=== PATIENT | male | born 1965 | race Two or more races ===

== ENCOUNTER → 2019-09-21 | Outpatient (CLI) | payer SELFPAY ==
[~2019-09-21] VITALS: Ht 167.6 cm; Wt 77.1 kg
== END | disposition home or self-care (01) ==
LOC: Rad HDHVI 07:59
PROVIDERS: ATTEND Internal Medicine Cardiovascular Disease
DX: R07.9 Chest pain, unspecified (principal); R42 Dizziness and giddiness
CPT/HCPCS: 93017

== ENCOUNTER 2025-02-16 12:01 | Inpatient (IN) | payer SELFPAY ==
[~2025-02-16] VITALS: Ht 172.7 cm; Wt 84.9 kg
--- NOTE | 2025-02-16 12:25 | ED.PDOC ---
History of Present Illness HPI Comments 59 year old male presents to the ED via EMS with a chief complaint of dizziness onset today (02/16/25). Per EMS, patient was at work, construction site, began experiencing dizziness, generalized weakness, fatigue. Upon EMS arrival, patient was cold, weak, pale, lethargic, BP was 130/85, O2 sat 97% RA. Patient states he is currently experiencing shortness of breath and generalized weakness. Denies headache, chest pain, nausea, vomiting, diarrhea, dysuria, hematuria, fever, chills. No other symptoms or modifying factors present at this time. Time Seen by MD: 12:20 Reviewed Notes: Medications, Allergies Allergies: Coded Allergies: No Known Drug Allergy (Verified Allergy, Unknown, 09/21/19) Information Source: Patient, Emergency Med Personnel Mode of Arrival: EMS Severity: Moderate Timing: Hours Duration: Since onset Prehospital treatment: None Past Medical History PAST MEDICAL HISTORY: Denies Surgical History: Appendectomy Surgical History (Other): cardiac ablasion Family History Family History: Reviewed,noncontributory to illness, No family hx of Cancer, No family hx of DM, No family hx of Heart don, No family hx of HTN, No family hx ofKidney don, No family hx of Liver don, No family hx of Lung don, No family hx of Stroke Social History Smoker: Non-Smoker Alcohol: Denies ETOH Use Drugs: Denies Drug Use Lives In: Home Constitutional: reports: fatigue, weakness; denies: chills, diaphoresis, fever, malaise, sweats, others EENTM: denies: blurred vision, double vision, ear bleeding, ear discharge, ear drainage, ear pain, ear ringing, eye pain, eye redness, hearing loss, mouth pain, mouth swelling, nasal discharge, nose bleeding, nose congestion, nose pain, photophobia, tearing, throat pain, throat swelling, voice changes, others Respiratory: reports: shortness of breath; denies: cough, hemoptysis, orthopnea, SOB at rest, SOB with excertion, stridor, wheezing, others Cardiovascular: denies: chest pain, dizzy spells, diaphoresis, Dyspnea on exertion, edema, irregular heart beat, left arm pain, lightheadedness, palpit ations, PND, syncope, others Gastrointestinal: denies: abdomen distended, abdominal pain, blood streaked b owels, constipated, diarrhea, dysphagia, difficulty swallowing, hematemesis, melena, nausea, poor appetite, poor fluid intake, rectal bleeding, rectal pain, vomiting, others Genitourinary: denies: burning, dysuria, flank pain, frequency, hematuria, incontinence, penile discharge, penile sore, pain, testicle pain, testicle swelling, urgency, others Neurological: reports: dizziness; denies: fainting, headache, left sided numbness, left sided weakness, numbness, paresthesia, pre-existing deficit, right sided numbness, right sided weakness, seizure, speech problems, tingling, tremors, weakness, others Musculoskeletal: denies: back pain, gout, joint pain, joint swelling, muscle pain, muscle stiffness, neck pain, others Integumetry: denies: bruises, change in color, change in hair/nails, dryness, laceration, lesions, lumps, rash, wounds, others Allergic/Immunocompromised: denies: Difficulty Healing, Frequent Infections, Hives, Itching, others Hematologic/Lymphatic: denies: anemia, blood clots, easy bleeding, easy bruising, swollen glands, others Endocrine: denies: excessive hunger, excessive sweating, excessive thirst, excessive urination, flushing, intolerance to cold, intolerance to heat, unexplained weight gain, unexplained weight loss, others Psychiatric: denies: anxiety, bipolar disorder, depression, hopeless, panic di sorder, schizophrenia, sleepless, suicidal, others All Other Systems: Reviewed and Negative Physical Exam General Appearance: Moderate Distress HEENT: Normal ENT Inspection, Pharynx Normal, TMs Normal Neck: Full Range of Motion, Non-Tender, Normal, Normal Inspection Respiratory: Chest Non-Tender, Lungs Clear, No Accessory Muscle Use, No Respiratory Distress, Normal Breath Sounds Cardiovascular: No Edema, No JVD, No Murmur, No Gallop, Normal Peripheral Pulses, Regular Rate/Rhythm Breast Exam: Deferred Gastrointestinal: No Organomegaly, Non Tender, No Pulsatile Mass, Normal Bowel Sounds, Soft Genitalia: Deferred Pelvic: Deferred Rectal: Deferred Extremities: No calf tenderness, Normal capillary refill, Normal inspection, Normal range of motion, Non-tender, No pedal edema Musculoskeletal : Apperance: Normal Neurologic: Alert, health technician hearing II-XII nml as Tested, No Motor Deficits, Normal Affect, Normal Mood, No Sensory Deficits Cerebellar Function: NOT DONE Reflexes: NOT DONE Skin: Dry, Normal Color, Warm Peripheral Pulses: 3+ Radial (R), 3+ Radial (L) Lymphatic: No Adenopathy Was a procedure done? Was a procedure done?: No EKG EKG : Pulse Rate (adult): 57 Cardiac Rhythm: NSR Differential Dx Considerations may include: Autonomic disorder Anemia X-Ray, Labs, Meds, VS Vital Signs Date Time Temp Pulse Resp B/P (MAP) Pulse Ox O2 Delivery O2 Flow Rate FiO2 02/16/25 14:15 57 02/16/25 13:53 97.8 61 18 123/85 (98) 97 97.8 02/16/25 12:10 97.8 58 18 130/85 (100) 96 97.8 02/16/25 12:05 57 Lab Test 02/16/25 13:11 Range/Units White Blood Count 13.0 H 4.4-10.8 10^3/uL Red Blood Count 5.26 4.5-5.90 10^6/uL Hemoglobin 16.4 13.5-17.5 g/dL Hematocrit 47.3 41.0-53.0 % Mean Corpuscular Volume 90.1 80.0-100.0 fL Mean Corpuscular Hemoglobin 31.1 28.0-32.0 pg Mean Corpuscular Hemoglobin Concent 34.6 32.0-36.0 g/dL Red Cell Distribution Width 12.6 11.8-14.3 % Platelet Count 242 140-450 10^3/uL Mean Platelet Volume 7.9 6.9-10.8 fL Neutrophils (%) (Auto) 89.5 H 37.0-80.0 % Lymphocytes (%) (Auto) 5.4 L 10.0-50.0 % Monocytes (%) (Auto) 4.5 0.0-12.0 % Eosinophils (%) (Auto) 0.2 0.0-7.0 % Basophils (%) (Auto) 0.4 0.0-2.0 % Neutrophils # (Auto) 11.6 H 1.6-8.6 10 ^3/uL Lymphocytes # (Auto) 0.7 0.4-5.4 10 ^3/uL Monocytes # (Auto) 0.6 0-1.3 10 ^3/uL Eosinophils # (Auto) 0 0-0.8 10 ^3/uL Basophils # (Auto) 0.1 0-0.2 10 ^3/uL Nucleated Red Blood Cells 0.0 % Sodium Level 145 136-145 mmol/L Potassium Level 4.9 3.5-5.1 mmol/L Chloride Level 114 H 98-107 mmol/L Carbon Dioxide Level 24 20-31 mmol/L Anion Gap 7 5-15 Blood Urea Nitrogen 13 9-23 mg/dL Creatinine 1.05 0.700-1.30 mg/dL Glomerular Filtration Rate Calc 81 >90 mL/min BUN/Creatinine Ratio 12.4 10.0-20.0 Serum Glucose 130 H 74-106 mg/dL Calcium Level 10.4 8.7-10.4 mg/dL Troponin I High Sensitivity < 3 L </=54 ng/L Current Medications Medications (Trade) Dose Ordered Sig/Roger Route Start Time Stop Time Status Last Admin Ceftriaxone Sodium 50 ml @ 100 mls/hr ONCE ONCE IV 02/16/25 14:15 02/16/25 14:49 DC 02/16/25 16:00 Patient alert. Complaining of dizziness. Heart rate in the low side. Vitals stable. Continues to have dizziness. Possibly autonomic disorder. Was given meclizine. Cardiology workup. Cardiology consultation. EKG reviewed does not show any acute changes. Reviewed his history. CT of the head reviewed does not show any acute changes. Cardiac marker within normal limits. Blood sugar slightly elevated. WBC slightly elevated. Establish intravenous access. Was given fluids. Was given Rocephin. Explained to the patient. Time of 1ST Reevaluation: 12:50 Reevaluation 1ST: Unchanged Patient Education/Counseling: Diagnosis, Treatment, Prognosis Family Education/Counseling: No Family Present Departure 1 Departure Time of Disposition: 12:42 Impression: Primary Impression: Symptomatic bradycardia Additional Impressions: Autonomic disorder Uncontrolled diabetes mellitus Qualified Codes: E13.65 - Other specified diabetes mellitus with hyperglycemia Leukocytosis, unspecified Disposition: ADMITTED INPATIENT Admit to: Med Surg Condition: Guarded Critical Care Note Critical Care Time?: Yes (90 min-critical care time only) Critical care comment: Symptomatic bradycardia continue to monitor Stability Stability form required: No Heart Score Heart Score: Heart Score Response (Comments) Value History Slightly Suspicious 0 EKG Normal 0 Age 45-64 1 Risk Factors >3 or Hx ASHD 2 Troponin Normal limit 0 Total 3 I personally scribed for CANDICE SOUTH MD ([email or web address]) on 02/16/25 at 12:25. Electronically submitted by Brie Funk ([email or web address]). I personally scribed for CANDICE SOUTH MD ([email or web address]) on 02/16/25 at 14:15. Electronically submitted by Brie Funk ([email or web address]). CANDICE SOUTH MD Feb 16, 2025 12:25
--- NOTE | 2025-02-16 13:12 | ECG ---
[facility] Test Date: 2025-02-16 Test Time: 12:05:39 Pat Name: IVETTE ROACH Department: ED Room: 0291T Gender: M Student Teaching Coordinator: saji : 1965 Requested By: CANDICE SOUTH Order Number: [id number] Reading MD: Ish Connolly Measurements Intervals [place] Rate: 57 P: 62 MO: 171 QRS: 71 QRSD: 98 T: 15 QT: 443 QTc: 432 Interpretive Statements Sinus rhythm RSR' in V1 or V2, probably normal variant Electronically Signed On 02-17-2025 14:58:45 PDT by Ish Connolly Please click the below link to view image of tracing.
[2025-02-16 13:21] LABS: Basophils # (auto) 0.1 10 ^3/uL (0-0.2); Basophils % (auto) 0.4 % (0.0-2.0); Eosinophils # (auto) 0 10 ^3/uL (0-0.8); Eosinophils % (auto) 0.2 % (0.0-7.0); Hematocrit 47.3 % (41.0-53.0); Hemoglobin 16.4 g/dL (13.5-17.5); Lymphocytes # (auto) 0.7 10 ^3/uL (0.4-5.4); Lymphocytes % (auto) 5.4 % (10.0-50.0); Mean Corpuscular Hemoglobin 31.1 pg (28.0-32.0); Mean Corpuscular Hgb Conc. 34.6 g/dL (32.0-36.0); Mean Corpuscular Volume 90.1 fL (80.0-100.0); Monocytes # (auto) 0.6 10 ^3/uL (0-1.3); Monocytes % (auto) 4.5 % (0.0-12.0); Neutrophils # (auto) 11.6 10 ^3/uL (1.6-8.6); Neutrophils % (auto) 89.5 % (37.0-80.0); Platelet Count (auto) 242 10^3/uL (140-450); Red Blood Cells 5.26 10^6/uL (4.5-5.90); Red Cell Distribution Width 12.6 % (11.8-14.3)
[2025-02-16 13:35] LABS: Potassium 4.9 mmol/L (3.5-5.1)
[2025-02-16 13:36] LABS: Anion Gap 7 (5-15); Carbon Dioxide 24 mmol/L (20-31)
[2025-02-16 13:37] LABS: Calcium 10.4 mg/dL (8.7-10.4); Chloride 114 mmol/L (98-107); Sodium 145 mmol/L (136-145)
[2025-02-16 13:42] LABS: Glucose 130 mg/dL (74-106)
[2025-02-16 13:43] LABS: BUN/Creatinine Ratio 12.4 (10.0-20.0); Blood Urea Nitrogen 13 mg/dL (9-23)
[2025-02-16] MEDS ORDERED: HYDROcodone-ACET 5/325MG TAB PO PRN (14:15)
[2025-02-16] MEDS ORDERED: ACETAMINOPHEN 325 MG TAB PO PRN (14:15)
[2025-02-16] MEDS ORDERED: ONDANSETRON HCL 4 MG/2 ML VIAL IV PRN (14:15)
[2025-02-16] MEDS ORDERED: DOCUSATE SOD 100 MG CAP PO PRN (14:15)
[2025-02-16] MEDS ORDERED: NITROGLYCERIN 0.4 MG SL TAB SL PRN (15:00)
[2025-02-16] MEDS ORDERED: MORPHINE SULFATE INJ 2 MG/ml SYRG IV PRN (15:00)
[2025-02-16] MEDS ORDERED: MECLIZINE HCL 25 MG TAB PO PRN (15:00)
--- NOTE | 2025-02-16 15:00 | DVHHP2 ---
History of Present Illness Reason for Visit: Dizziness and giddiness History of Present Illness The patient is a 59-year-old male with past medical history of appendicitis who presented to [facility] ED with complaint of dizziness. 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 Patient was seen and evaluated in the ED, laboratory data shows WBC 13.0, platelets 242, sodium 145, potassium 4.9, BUN 13, creatinine 1.05, glucose 130, calcium 10.4, troponin < 3, blood pressure 123/85, heart rate 58, temperature 97.8 F, O2 saturation 97% on oxygen. Head CT results pending, please see medication orders section in the computer. On my assessment, patient denied chest pain, no headache, no dizziness, currently on oxygen, no diaphoresis, no nausea, no vomiting, no fever, no chills. Patient was admitted for further evaluation and medical management. Past Medical History Appendicitis Past Surgical History Appendectomy, Cardiac ablation Family History Reviewed, noncontributory to the management of this case. Past Social History The patient lives at home, denies smoking, alcohol or illicit drugs abuse. Review of Systems Constitutional: Yes: Weakness, Other (Fatigue); No: Fever, Chills, Sweats, Malaise Eyes: No: Pain, Vision change, Conjunctivae inflammation, Eyelid inflammation, Other, Redness ENT: No: Ear pain, Ear discharge, Nose pain, Nose discharge, Nose congestion, Mouth pain, Mouth swelling, Throat pain, Throat swelling, Other Respiratory: Shortness of breath; No: Cough, Dry, SOB with excertion, Wheezing, Hemoptysis, Pleuritic Pain, Sputum, Wheezing, Other Cardiovascular: No: Chest Pain, Palpitations, Orthopnea, Paroxysmal Noc. Dyspnea, Edema, Lt Headedness, Other Gastrointestinal: No: Nausea, Vomiting, Abdominal Pain, Diarrhea, Constipation, Melena, Hematochezia, Other Genitourinary: No Dysuria, No Frequency, No Incontinence, No Hematuria, No Retention, No Other Musculoskeletal: No: other, neck pain, shoulder pain, arm pain, back pain, hand pain, leg pain, foot pain Skin: No: Rash, Lesions, Jaundice, Bruising, Other Neurological: Other (Dizziness); No: Weakness, Numbness, Incoordination, Change in speech, Confusion, Seizures Allergies: Coded Allergies: No Known Drug Allergy (Verified Allergy, Unknown, 09/21/19) Medications Current Medications Medications Dose Ordered Sig/Roger Route Start Time Stop Time Status Last Admin Dose Admin Sodium Chloride 10 ml Q8HR IV 02/16/25 22:00 Acetaminophen/ Hydrocodone Bitart 1 tab Q4HP PRN PO 02/16/25 14:15 Ondansetron HCl 4 mg Q4HP PRN IV 02/16/25 14:15 Docusate Sodium 100 mg BIDPRN PRN PO 02/16/25 14:15 Acetaminophen 650 mg Q6HP PRN PO 02/16/25 14:15 Ceftriaxone Sodium 50 ml @ 100 mls/hr DAILY@09 IV 02/17/25 09:00 Exam Vital Signs Vital Signs Date Time Temp Pulse Resp B/P (MAP) Pulse Ox O2 Delivery O2 Flow Rate FiO2 02/16/25 14:15 57 02/16/25 13:53 97.8 18 123/85 (98) 97 97.8 General Appearance: Alert, Oriented X3, Cooperative, No acute distress HEENT: Atraumatic, PERRLA, EOMI, Mucous membr. moist/pink Respiratory: Clear to auscultation, Normal air movement Cardiovascular: Regular rate, Normal S1, Normal S2, No murmurs Abdominal: Normal bowel sounds, Soft, No tenderness, No hepatospenomegaly, No masses Extremities: No clubbing, No cyanosis, No edema, Normal pulses, No tenderness/swelling Skin: No rashes, No breakdown, No significant lesion Neuro: Normal speech, Normal tone, Sensation intact, Cranial nerves 3-12 NL, Reflexes 2+, Other (Generalized weakness) Psych/Mental Status: Mental status NL, Mood NL Labs/Xrays Labs Test 02/16/25 13:11 Range/Units White Blood Count 13.0 H 4.4-10.8 10^3/uL Red Blood Count 5.26 4.5-5.90 10^6/uL Hemoglobin 16.4 13.5-17.5 g/dL Hematocrit 47.3 41.0-53.0 % Mean Corpuscular Volume 90.1 80.0-100.0 fL Mean Corpuscular Hemoglobin 31.1 28.0-32.0 pg Mean Corpuscular Hemoglobin Concent 34.6 32.0-36.0 g/dL Red Cell Distribution Width 12.6 11.8-14.3 % Platelet Count 242 140-450 10^3/uL Mean Platelet Volume 7.9 6.9-10.8 fL Neutrophils (%) (Auto) 89.5 H 37.0-80.0 % Lymphocytes (%) (Auto) 5.4 L 10.0-50.0 % Monocytes (%) (Auto) 4.5 0.0-12.0 % Eosinophils (%) (Auto) 0.2 0.0-7.0 % Basophils (%) (Auto) 0.4 0.0-2.0 % Neutrophils # (Auto) 11.6 H 1.6-8.6 10 ^3/uL Lymphocytes # (Auto) 0.7 0.4-5.4 10 ^3/uL Monocytes # (Auto) 0.6 0-1.3 10 ^3/uL Eosinophils # (Auto) 0 0-0.8 10 ^3/uL Basophils # (Auto) 0.1 0-0.2 10 ^3/uL Nucleated Red Blood Cells 0.0 % Sodium Level 145 136-145 mmol/L Potassium Level 4.9 3.5-5.1 mmol/L Chloride Level 114 H 98-107 mmol/L Carbon Dioxide Level 24 20-31 mmol/L Anion Gap 7 5-15 Blood Urea Nitrogen 13 9-23 mg/dL Creatinine 1.05 0.700-1.30 mg/dL Glomerular Filtration Rate Calc 81 >90 mL/min BUN/Creatinine Ratio 12.4 10.0-20.0 Serum Glucose 130 H 74-106 mg/dL Calcium Level 10.4 8.7-10.4 mg/dL Troponin I High Sensitivity < 3 L </=54 ng/L Assessment/Plan Assessment/Plan Dizziness and giddiness Bradycardia Generalized weakness Shortness of breaths Leukocytosis, unspecified Plan 1. Admit to telemetry unit 2. Breathing treatment 3. Pain control management 4. IV antibiotic management 5. Management of fluids and electrolytes 6. Consultation for Neurology 7. Diagnostic test head CT 8. DVT prophylaxis-on SCDs 9. Repeat labs CBC, CMP in a.m. 10. Home medication reviewed and reconciled 11. Continue with current medical management 12. Treatment plan discussed with patient and RN. Patient verbalized understanding. Plan discussed with: Patient, Other (RN) My Orders Orders - KATY EDWARDS DNP Procedure Category Date Status Time Allergies MAKENZIE 02/16/25 In Process 14:07 Code Status CODE 02/16/25 Transmitted 14:07 Sodium Chloride Lock PHA 02/16/25 In Process (Saline Lock Ns) 22:00 Oxygen Per Hour RT 02/16/25 Transmitted 14:07 Hydrocodone-Acet PHA 02/16/25 In Process 5/325mg Tab (Ransom 14:15 Ondansetron Hcl PHA 02/16/25 In Process (Zofran) 14:15 Docusate Sodium PHA 02/16/25 In Process Capsule (Colace 14:15 Fall Risk Precautions MAKENZIE 02/16/[address] 14:07 Complete Blood Count LAB 02/17/25 Verified 04:00 Comprehensive LAB 02/17/25 Verified Metabolic Panel 04:00 Cardiac DIET 02/16/25 Transmitted Diet-2gna,Lofat,Lochol Dinner Condition: Serious MAKENZIE 02/16/25 In Process 14:07 Acetaminophen Tablet PHA 02/16/25 In Process (Tylenol Tablet) 14:15 Maintain Bed Rest MAKENZIE 02/16/25 In Process 14:07 Sequential MAKENZIE 02/16/25 In Process Compression Device Ceftriaxone 1gm/50ml PHA 02/17/25 In Process D5w (Rocephin) 09:00 Problem List: (1) Dizziness and giddiness (2) Bradycardia (3) Shortness of breath (4) Generalized weakness (5) Leukocytosis, unspecified Date of Service: Feb 16, 2025 Billing Provider: KATY EDWARDS DNP Common Visit Codes: 08969-VUEPPHY INP/OBS CARE (HIGH) KATY EDWARDS DNP Feb 16, 2025 15:00
--- NOTE | 2025-02-16 15:42 | DVH ---
CLINICAL HISTORY: Severe dizziness TECHNIQUE: Helical imaging carried out from skull base to vertex without intravenous contrast. This e xam was performed according to our departmental dose optimization program. Up-to-date CT equipment an d radiation dose reduction techniques are utilized as appropriate. CTDIVol: 58.8 mGy DLP: 1158.78 mGy-cm WID: COMPARISON: None FINDINGS: The ventricles and subarachnoid spaces are normal in size and configuration. There is no midline francisco ft or mass effect. The [place] white matter interfaces are maintained. The basal cisterns are patent. Th ere is no evidence of acute intracranial hemorrhage or extra-axial fluid collection. Bilateral mastoi d air cell effusions and bilateral middle ear fluid. Visualized paranasal sinuses are clear. IMPRESSION: 1. No acute intracranial abnormality. 2. Bilateral mastoid air cell effusions and bilateral middle ear fluid which could reflect otomastoid itis, correlate with clinical symptoms.
[2025-02-16] MEDS: cefTRIAXone 1GM/50ML D5W 50 ML IV ONE (16:00)
[2025-02-16 18:00] VITALS: PULSE 89; RESP 16; O2SAT 95
[2025-02-16 19:33] VITALS: PULSE 86; RESP 17; O2SAT 96
[2025-02-16 22:01] VITALS: PULSE 57; RESP 18; O2SAT 97
[2025-02-16 22:18] VITALS: BP 125/78; PULSE 73; RESP 19; O2SAT 95
[2025-02-17 01:00] VITALS: BP 122/82; PULSE 57; RESP 17; TEMP 97.8; O2SAT 97
[2025-02-17 05:00] VITALS: BP 124/74; PULSE 67; RESP 17; TEMP 98.1; O2SAT 97
[2025-02-17] MEDS: SODIUM CHLOR 0.9% PF (SALINE LOCK) 10ML VIAL/SYR IV SCH (05:55)
[2025-02-17 06:02] LABS: Basophils # (auto) 0.1 10 ^3/uL (0-0.2); Basophils % (auto) 0.6 % (0.0-2.0); Eosinophils # (auto) 0.2 10 ^3/uL (0-0.8); Eosinophils % (auto) 1.6 % (0.0-7.0); Hematocrit 44.3 % (41.0-53.0); Hemoglobin 15.5 g/dL (13.5-17.5); Lymphocytes # (auto) 1.6 10 ^3/uL (0.4-5.4); Lymphocytes % (auto) 16.3 % (10.0-50.0); Mean Corpuscular Hemoglobin 31.4 pg (28.0-32.0); Mean Corpuscular Volume 89.6 fL (80.0-100.0); Monocytes # (auto) 0.7 10 ^3/uL (0-1.3); Monocytes % (auto) 7.6 % (0.0-12.0); Neutrophils # (auto) 7.1 10 ^3/uL (1.6-8.6); Neutrophils % (auto) 73.9 % (37.0-80.0); Platelet Count (auto) 238 10^3/uL (140-450); Red Blood Cells 4.94 10^6/uL (4.5-5.90); Red Cell Distribution Width 13.2 % (11.8-14.3); White Blood Cell 9.6 10^3/uL (4.4-10.8)
[2025-02-17 06:23] LABS: Alanine Aminotransferase 17 U/L (7-40); Albumin 4.2 g/dL (3.2-4.8); Alkaline Phosphatase 75 U/L (46-116); Anion Gap 7 (5-15); Aspartate Aminotransferase 13 U/L (13-40); BUN/Creatinine Ratio 11.7 (10.0-20.0); Bilirubin, Total 0.8 mg/dL (0.2-1.0); Blood Urea Nitrogen 12 mg/dL (9-23); Calcium 9.4 mg/dL (8.7-10.4); Carbon Dioxide 25 mmol/L (20-31); Potassium 4.2 mmol/L (3.5-5.1); Sodium 142 mmol/L (136-145); Total Protein 6.3 g/dL (5.7-8.2)
[2025-02-17 06:25] LABS: Chloride 110 mmol/L (98-107); Glucose 112 mg/dL (74-106)
[2025-02-17 08:30] VITALS: PULSE 73
[2025-02-17 08:56] VITALS: BP 127/78; PULSE 65; RESP 19; TEMP 97.9; O2SAT 94
[2025-02-17] MEDS: cefTRIAXone 1GM/50ML D5W 50 ML IV SCH (09:22)
[2025-02-17 13:27] VITALS: BP 137/81; PULSE 69; RESP 18; TEMP 97.8; O2SAT 97
[2025-02-17] MEDS ORDERED: AUG875T PO (13:44)
--- NOTE | 2025-02-17 19:27 | DVHDS2 ---
Discharge Summary Date of Admission Feb 16, 2025 at 14:56 Date of Discharge: Feb 17, 2025 Labs/Diagnostic Data: Laboratory Results Test 02/17/25 05:06 02/16/25 13:11 White Blood Count 9.6 10^3/uL (4.4-10.8) Red Blood Count 4.94 10^6/uL (4.5-5.90) Hemoglobin 15.5 g/dL (13.5-17.5) Hematocrit 44.3 % (41.0-53.0) Mean Corpuscular Volume 89.6 fL (80.0-100.0) Mean Corpuscular Hemoglobin 31.4 pg (28.0-32.0) Mean Corpuscular Hemoglobin Concent 35.0 g/dL (32.0-36.0) Red Cell Distribution Width 13.2 % (11.8-14.3) Platelet Count 238 10^3/uL (140-450) Mean Platelet Volume 8.5 fL (6.9-10.8) Neutrophils (%) (Auto) 73.9 % (37.0-80.0) Lymphocytes (%) (Auto) 16.3 % (10.0-50.0) Monocytes (%) (Auto) 7.6 % (0.0-12.0) Eosinophils (%) (Auto) 1.6 % (0.0-7.0) Basophils (%) (Auto) 0.6 % (0.0-2.0) Neutrophils # (Auto) 7.1 10 ^3/uL (1.6-8.6) Lymphocytes # (Auto) 1.6 10 ^3/uL (0.4-5.4) Monocytes # (Auto) 0.7 10 ^3/uL (0-1.3) Eosinophils # (Auto) 0.2 10 ^3/uL (0-0.8) Basophils # (Auto) 0.1 10 ^3/uL (0-0.2) Nucleated Red Blood Cells 0.0 % Sodium Level 142 mmol/L (136-145) Potassium Level 4.2 mmol/L (3.5-5.1) Chloride Level 110 mmol/L (98-107) Carbon Dioxide Level 25 mmol/L (20-31) Anion Gap 7 (5-15) Blood Urea Nitrogen 12 mg/dL (9-23) Creatinine 1.03 mg/dL (0.700-1.30) Glomerular Filtration Rate Calc 83 mL/min (>90) BUN/Creatinine Ratio 11.7 (10.0-20.0) Serum Glucose 112 mg/dL (74-106) Calcium Level 9.4 mg/dL (8.7-10.4) Total Bilirubin 0.8 mg/dL (0.2-1.0) Aspartate Amino Transferase (AST) 13 U/L (13-40) Alanine Aminotransferase (ALT) 17 U/L (7-40) Alkaline Phosphatase 75 U/L (46-116) Total Protein 6.3 g/dL (5.7-8.2) Albumin 4.2 g/dL (3.2-4.8) Troponin I High Sensitivity < 3 ng/L (</=54) Other Laboratory Tests 02/17/25 05:06 Brief Hx & Hospital Course: The patient is a 59-year-old male with past medical history of appendicitis who presented to [facility] ED with complaint of dizziness. 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 Patient was seen and evaluated in the ED, laboratory data shows WBC 13.0, platelets 242, sodium 145, potassium 4.9, BUN 13, creatinine 1.05, glucose 130, calcium 10.4, troponin < 3, blood pressure 123/85, heart rate 58, temperature 97.8 F, O2 saturation 97% on oxygen. Head CT results pending, please see medication orders section in the computer. On my assessment, patient denied chest pain, no headache, no dizziness, currently on oxygen, no diaphoresis, no nausea, no vomiting, no fever, no chills. Patient was admitted for further evaluation and medical management. Dizziness improved, found mastoiditis on CT scan and discharged on oral abx Condition at Discharge: Good Final Diagnosis/Problems List Osteomastoiditis bradycardia Discharge Disposition: Home Discharge Instruct/Medications Diet: Regular Activity: No Restrictions, As Tolerated Follow Up/Referral: PCP in 7 days Medications: augmentin for 14 days Discharge Statement: "Patient was advised to return to the ER or call 911 if any headaches, dizziness, shortness of breath, chest pain, abdominal pain, bleeding, fevers, or worsening of medical condition. Patient was counseled about treatment plan, medications, possible side effects, patientverbalized understanding. All questions were answered to the best of my ability. This discharge took greater then 30 minutes in planning, reviewing documentation, counseling the patient, and discussing with other team members." ASSESSMENT ASSESSMENT Assessment Osteomastoiditis bradycardia Date of Service: Feb 17, 2025 Billing Provider: HUNG CAMACHO MD Common Visit Codes: 63404-IWY/OBS DISCH DAY >30min HUNG CAMACHO MD Feb 17, 2025 19:27
== END 2025-02-17 19:16 | disposition home or self-care (01) | DRG 156 ==
LOC: EDBD 12:01 → ER 12:10 → OVERFLOW 14:56 → TELE-WESTW 22:02
PROVIDERS: ADMIT Hospitalist; ATTEND Hospitalist
DX: H70.893 Other mastoiditis and related conditions, bilateral (principal); D72.829 Elevated white blood cell count, unspecified; G90.89 Other disorders of autonomic nervous system; E11.9 Type 2 diabetes mellitus without complications; Z90.49 Acquired absence of other specified parts of digestive tract; Z87.19 Personal history of other diseases of the digestive system; Z79.899 Other long term (current) drug therapy
CPT/HCPCS: 36415; 70450; 80048; 80053; 84484; 85025; 93005; 96365; 99291; 99292; G0378